=== PATIENT | male | born 2005 | race Two or more races ===

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

== ENCOUNTER 2023-09-16 14:51 | Emergency (ER) | payer OTHER ==
[~2023-09-16] VITALS: Ht 177.8 cm; Wt 81.2 kg
[2023-09-16] MEDS ORDERED: ORPHENADRINE CITRATE 30 MG/ML AMPUL IM STA (16:42)
[2023-09-16] MEDS ORDERED: DEXAMETHASONE SODIUM PHOSPHATE 4 MG/ML VIAL IM STA (16:43)
== END 2023-09-16 17:11 | disposition home or self-care (01) ==
LOC: EMR PED 14:51 → ER 15:23 → EMR PED 15:23
DX: M54.2 Cervicalgia (principal)

== ENCOUNTER 2023-12-11 13:46 | Emergency (ER) | payer OTHER ==
[~2023-12-11] VITALS: Ht 180.3 cm; Wt 81.6 kg
[2023-12-11 14:37] VITALS: BP 146/68; O2SAT 100
[2023-12-11] MEDS ORDERED: KETOROLAC TROMETHAMINE 30 MG VIAL IM STA (15:10)
[2023-12-11] MEDS ORDERED: DEXAMETHASONE SODIUM PHOSP/PF 10 MG/ML VIAL IJ STA (15:11)
[2023-12-11] MEDS ORDERED: DEXAMETHASONE SODIUM PHOSPHATE 4 MG/ML VIAL IV STA (15:14)
[2023-12-11] MEDS ORDERED: KETOROLAC TROMETHAMINE 30 MG VIAL IV STA (15:14)
[2023-12-11 15:45] LABS: HEMATOCRIT 43.4 % (39.0-48.0); HEMOGLOBIN 14.9 g/dL (13-16.00); MEAN CELL VOLUME 88.7 fL (80.0-100.00); MEAN CORPUSCULAR HEMOGLOBIN 30.4 pg (27.00-32.0); MEAN CORPUSCULAR HGB CONC 34.3 g/dl (32.0-36.0); PLATELET COUNT 176 K/uL (150-450); RED CELL DISTRIBUTION WIDTH 13.2 % (11.5-14.5)
[2023-12-11 15:45] LABS: PH,URINE 7.5 (5.0-8.0); URINE APPEARANCE Clear; URINE BILIRRUBIN Negative (NEGATIVE); URINE BLOOD Negative; URINE COLOR Yellow; URINE GLUCOSE Negative (NEGATIVE); URINE KETONE Negative (NEGATIVE); URINE LEUKOCYTE Negative; URINE NITRATE Negative; URINE PROTEIN Negative (NEGATIVE)
[2023-12-11 15:49] LABS: URINE RBC 2.4 uL (0.0-20.8); URINE WBC 2.4 uL (0.0-23.2)
[2023-12-11 15:52] LABS: URINE BACTERIA 1.2 uL (0.0-1933)
== END 2023-12-11 16:51 | disposition home or self-care (01) ==
LOC: ER 13:48 → EMR PED 14:27
DX: N48.89 Other specified disorders of penis (principal)

== ENCOUNTER 2024-01-06 13:14 | Emergency (ER) | payer OTHER ==
[~2024-01-06] VITALS: Ht 180.3 cm; Wt 81.6 kg
== END 2024-01-06 15:13 | disposition home or self-care (01) ==
LOC: ER 13:14 → EMR PED 13:26 → ER 13:26 → EMR PED 15:13
DX: N48.89 Other specified disorders of penis (principal)

== ENCOUNTER → 2024-09-26 | Emergency (ER) | payer OTHER ==
[~2024-09-26] VITALS: Ht 167.6 cm; Wt 76.7 kg
== END | disposition left against medical advice (07) ==
LOC: ER 23:06
DX: Z53.21 Procedure and treatment not carried out due to patient leaving prior to being seen by health care provider (principal)

== ENCOUNTER 2024-12-01 19:08 | Emergency (ER) | payer OTHER ==
[~2024-12-01] VITALS: Ht 177.8 cm; Wt 75.7 kg
[2024-12-01 20:50] LABS: BASO % 0.7 % (0.1-1.2); EOS # 0.05 (0.04-0.54); EOS % 0.9 % (0.7-7.0); LYMPH # 1.74 (1.18-3.74); LYMPH % 32.1 % (19.3-53.1); MEAN PLATELET VOLUME 10.30 fl (9.4-12.4); MONO # 0.19 (0.24-0.82); MONO % 3.5 % (4.7-12.5); NEUT # 3.38 (1.56-6.13); NEUT % 62.4 % (34.0-71.1); RED CELL DISTRIBUTION WIDTH 11.6 % (11.6-14.4)
[2024-12-01 21:35] LABS: ALT/SGPT 28 U/L (12-78); AST/SGOT 14 U/L (15-37); BILIRUBIN TOTAL 1.01 mg/dL (0.3-1.2); BUN CREA RATIO 11 (7.0-25.0); CREATININE SERUM 1.04 mg/dL (0.70-1.30); GFR 90.15; GLOBULINA 3.1 G/DL (2.4-3.5); GLUCOSE FASTING 129 mg/dL (65-100); OSMOLALITY SERUM 282 MOSM/KG (275-295)
[2024-12-01] MEDS ORDERED: CEFTRIAXONE SODIUM 1,000 MG VIAL IM STA (22:00)
[2024-12-01] MEDS ORDERED: CEFTRIAXONE SODIUM 1,000 MG VIAL ONE (22:17)
== END 2024-12-01 22:26 | disposition home or self-care (01) ==
LOC: ER 19:08
PROVIDERS: Physician Assistant Medical
DX: K04.7 Periapical abscess without sinus (principal)

== ENCOUNTER 2025-02-03 15:55 | Emergency (ER) | payer OTHER ==
[~2025-02-03] VITALS: Ht 177.8 cm; Wt 77.1 kg
[2025-02-03] MEDS ORDERED: DEXAMETHASONE SODIUM PHOSPHATE 4 MG/ML VIAL IM STA (17:08)
[2025-02-03] MEDS ORDERED: ACETAMINOPHEN 500 MG GEL..CAP PO ONE ×2 (17:15→19:01)
[2025-02-03] MEDS ORDERED: DIPHENHYDRAMINE HCL 50 MG/ML VIAL 1ML IM ONE (17:15)
[2025-02-03] MEDS ORDERED: DIPHENHYDRAMINE HCL 50 MG/ML VIAL 1ML ONE (19:01)
[2025-02-03] MEDS ORDERED: DEXAMETHASONE SODIUM PHOSPHATE 4 MG/ML VIAL ONE (19:01)
[2025-02-03 20:19] LABS: BASO % 0.3 % (0.1-1.2); EOS # 0.52 (0.04-0.54); EOS % 6.0 % (0.7-7.0); LYMPH # 5.15 (1.18-3.74); LYMPH % 59.1 % (19.3-53.1); MEAN PLATELET VOLUME 10.70 fl (9.4-12.4); MONO # 0.40 (0.24-0.82); MONO % 4.6 % (4.7-12.5); NEUT # 2.59 (1.56-6.13); NEUT % 29.7 % (34.0-71.1); RED CELL DISTRIBUTION WIDTH 11.6 % (11.6-14.4)
[2025-02-03 20:35] LABS: COVID-19 AG NEGATIVE (NEGATIVE)
[2025-02-03 21:10] LABS: BASOPHIL MAN 1.0 %; EOSINOPHIL MAN 3.0 %; LYMPHOCYTE MAN 18.0 %; MONOCYTE MAN 11.0 %; MYELOCYTE 1.0 %; NEUTROPHILS MAN 28.0 %
== END 2025-02-03 23:05 | disposition home or self-care (01) ==
LOC: ER 15:55
PROVIDERS: General Practice
DX: B34.9 Viral infection, unspecified (principal); R50.9 Fever, unspecified; Z20.822 Contact with and (suspected) exposure to COVID-19